=== PATIENT | male | born 1950 | race Caucasian/White ===

== ENCOUNTER → 2020-07-14 10:30 | Outpatient (CLI) | payer MEDICARE, SELFPAY ==
--- NOTE | ~2020-07-14 | CT_ITS ---
EXAMINATION:CT lung screening DATE: 07/14/2020 10:49 INDICATION: Personal history of tobacco dependence. Current smoker with 40 pack year history. TECHNIQUE: Computed tomography (CT) of the chest was performed without intravenous contrast. Automate d exposure control and iterative reconstruction technique were employed. The dose-length product (DLP ) was 53.84 mGy-cm. COMPARISON: Chest CT 06/04/2017 FINDINGS: There is mild emphysema. A calcified right lung nodule is consistent with old granulomatous disease. Again seen are a few scattered nodules measuring up to 4 mm. No pleural effusion. The heart size is normal. There are coronary artery calcifications. No pericardial effusion. There is a chroni c mildly enlarged right paratracheal lymph node, contracted. There is moderate thoracic spondylosis. IMPRESSION: 1. Lung-RADS category 2: Benign appearance or behavior. Continue annual screening with noncontrast lo w-dose chest CT in 12 months. Reviewed, dictated and finalized at location A. IMPRESSION: 1. Lung-RADS category 2: Benign appearance or behavior. Continue annual screeni ng with noncontrast low-dose chest CT in 12 months.
== END ==
PROVIDERS: PCP Internal Medicine; Visit Provider Internal Medicine
DX: Z12.2 Encounter for screening for malignant neoplasm of respiratory organs (principal); Z87.891 Personal history of nicotine dependence
CPT/HCPCS: G0297

== ENCOUNTER 2020-11-29 11:03 | Outpatient (CLI) | payer MEDICARE, SELFPAY | END 2020-11-29 11:04 | disposition home or self-care (01) | LOC: ANHCOVIDVC 11:03 | PROVIDERS: PCP Internal Medicine | DX: Z23 Encounter for immunization (principal) | CPT/HCPCS: 0001A; 91300 ==

== ENCOUNTER 2020-12-20 10:42 | Outpatient (CLI) | payer MEDICARE, SELFPAY | END 2020-12-20 10:43 | disposition home or self-care (01) | LOC: ANHCOVIDVC 10:42 | PROVIDERS: PCP Internal Medicine | DX: Z23 Encounter for immunization (principal) | CPT/HCPCS: 0002A; 91300 ==

== ENCOUNTER 2021-05-14 09:23 | Outpatient (CLI) | payer MEDICARE, SELFPAY ==
--- NOTE | ~2021-05-14 | CT_ITS ---
EXAMINATION: CT lung screening DATE: 05/14/2021 09:41 INDICATION: History of nicotine dependence TECHNIQUE: Computed tomography (CT) of the chest was performed without intravenous contrast. The dose -length product was 72.66 mGy-cm. Automated exposure control and iterative reconstruction technique w ere employed. COMPARISON: CT dated 07/14/2020 FINDINGS: Heart size normal. No significant pleural or pericardial effusion. There is atherosclerosis of the aorta and coronary arteries. No thoracic lymphadenopathy. The upper abdomen is unremarkable t here are scattered pulmonary nodules measuring 4 mm or less without significant interval change. Calc ified granuloma right upper lobe. Moderate thoracic spondylosis. No endobronchial lesions. Mild emphy sema. There are healed right rib fractures. IMPRESSION: 1. Lung-RADS category 2: Benign appearance or behavior. Continue annual screening with noncontrast lo w-dose chest CT in 12 months. Reviewed, dictated and finalized at location A. IMPRESSION: 1. Lung-RADS category 2: Benign appearance or behavior. Continue annual screeni ng with noncontrast low-dose chest CT in 12 months.
== END 2021-05-14 09:24 | disposition home or self-care (01) ==
LOC: ANHIMG 09:28
PROVIDERS: PCP Internal Medicine; Visit Provider Internal Medicine
DX: Z12.2 Encounter for screening for malignant neoplasm of respiratory organs (principal); F17.210 Nicotine dependence, cigarettes, uncomplicated
CPT/HCPCS: 71271

== ENCOUNTER 2021-06-01 13:00 | Outpatient (CLI) | payer MEDICARE, SELFPAY | END 2021-06-01 13:01 | disposition home or self-care (01) | LOC: ANHBWCAUD 13:01 | PROVIDERS: PCP Internal Medicine; Visit Provider Internal Medicine | DX: H93.13 Tinnitus, bilateral (principal) | CPT/HCPCS: 92557; 92567 ==

== ENCOUNTER 2021-07-30 00:24 | Day surgery (SDC) | payer MEDICARE, SELFPAY ==
[2021-07-12 10:52] VITALS: BMI 21.4
[2021-07-30 08:19] VITALS: BP 100/65; PULSE 66; RESP 16; TEMP 36.1; O2SAT 99; BMI 19.7
--- NOTE | 2021-07-30 08:20 | P.PNAN_ITS ---
Anes - Initial Pre Proc Eval Procedure: Operation Date: 07/30/21 09:00 Proposed Procedures p Screening Colonoscopy - Barber De La Paz MD Date/Time: 07/30/21 08:20 Surgeon: Barber De La Paz MD Pre Op Diagnosis: hx of colon polyps Patient Data Age: 70 Gender: M Height: 1.75 m Weight: 65.9 kg Allergies Allergy/AdvReac Type Severity Reaction Status Date / Time No Known Allergies Allergy Verified 07/30/21 08:17 Home Medications Medication Instructions Recorded Confirmed Type albuterol sulfate 90 mcg/actuation 2 puff INHALATION Q6H #8.5 gm 05/08/20 07/30/21 Rx aerosol inhaler Patient hx anesthesia problems: none Family hx anesthesia problems: none Results Review: All pre-operative results and documents have been reviewed as part of the pre-operative evaluation. [facility] Past Medical History Medical History Pulmonary emphysema Family History Family History Sibling Diabetes mellitus Family history of obesity Father Patient's father is in good health Mother Carcinoma of colon Social History Social History Smoking packs per day: 1 Smoking cigarettes per day: 20.0 Years smoked: 50 Smoking pack-years: 50.00 Smoking status: Current every day smoker Tobacco type: cigarettes Second hand tobacco smoke exposure: Yes Alcohol intake: current Substance use type: does not use Living arrangements: with family Anes - Eval Final PreProcedure Day of Procedure 07/30/21 08:20 Patient weight: normal Heart: regular rate and rhythm Lungs: decreased breath sounds Airway: Mallampati scale class II Neurological: alert and oriented Last oral intake: >/= 8 hours ASA classification: III Emergent: no Anesthetic plan: proceed Anesthesia type and monitoring: general GIVS and standard monitoring Results Review: All pre-operative results and documents have been reviewed as part of the pre-operative evaluation. Informed Consent: The patient's anesthetic plan and its attendant risks and benefits were discussed with the patient/family/POA. Questions were solicited and answers provided to the satisfaction of the patient/family/POA.
[2021-07-30] MEDS: LACTATED RINGERS 1,000 ML 150 ML IV CONT (08:30)
--- NOTE | 2021-07-30 08:41 | WPDGICN ---
Assessment and Plan Assessment and plan (1) History of colon polyps: Code(s): Z86.010 - Personal history of colonic polyps Status: Acute Assessment and Plan: Patient has a prior history of colon polyps for this reason he presents today for follow-up colonoscopy. (2) Family history of colonic polyps: Code(s): Z83.71 - Family history of colonic polyps Status: Acute Assessment and Plan: Patient's mother has had colon polyps suggesting this tendency runs in the family. Plan is for surveillance colonoscopy at 5 year intervals. GI Consult Note Consult date/time: 07/30/21 08:41 HPI: Pardeep Stevenson is a 70 year old male Presents for screening colonoscopy. Patient states that his current weight appetite and bowel movements are normal. He denies abdominal pain. He has had no bleeding. Family history is significant his mother had colon polyps. Patient does have a prior history of colon polyps. Most recent colonoscopy several years ago was unremarkable. Review of Systems Review of Systems: All systems reviewed & are unremarkable except as noted in HPI and below PMFSH Past Medical History Medical History Pulmonary emphysema Family History Family History Sibling Diabetes mellitus Family history of obesity Father Patient's father is in good health Mother Carcinoma of colon Social History Social History Smoking packs per day: 1 Smoking cigarettes per day: 20.0 Years smoked: 50 Smoking pack-years: 50.00 Smoking status: Current every day smoker Tobacco type: cigarettes Second hand tobacco smoke exposure: Yes Alcohol intake: current Substance use type: does not use Living arrangements: with family Meds Home Medications and Allergies Home Medications Medication Instructions Recorded Confirmed Type albuterol sulfate 90 mcg/actuation 2 puff INHALATION Q6H #8.5 gm 05/08/20 07/30/21 Rx aerosol inhaler Allergies Allergy/AdvReac Type Severity Reaction Status Date / Time No Known Allergies Allergy Verified 07/30/21 08:17 Vital Signs Vital Signs - 24 hr 07/30/21 08:19 Temperature 96.9 F L Pulse Rate 66 Respiratory Rate 16 Blood Pressure 100/65 Pulse Oximetry 99 Exam Narrative: Physical exam reveals patient be alert. Vital signs stable. HEENT exam is unremarkable. Patient is anicteric. Lungs or clear to auscultation and percussion heart is without murmur. Abdominal exam bowel sounds are present soft nontender with no organomegaly. Digital external rectal exam is normal.
[2021-07-30 09:11] VITALS: BP 86/56; PULSE 65; RESP 16; O2SAT 98
[2021-07-30 09:21] VITALS: BP 114/64; PULSE 58; RESP 16; O2SAT 100
[2021-07-30 09:31] VITALS: BP 117/67; PULSE 57; RESP 16; O2SAT 100
== END 2021-07-30 09:43 | disposition home or self-care (01) ==
PROVIDERS: PCP Internal Medicine; Visit Provider Internal Medicine Gastroenterology
PROC: 0DJD8ZZ Inspection of Lower Intestinal Tract, Via Natural or Artificial Opening Endoscopic (ICD-10-PCS; CPT 45378; principal; 2021-07-30 09:00)
DX: Z12.11 Encounter for screening for malignant neoplasm of colon (principal); Z83.71 Family history of colonic polyps; K64.8 Other hemorrhoids; K63.5 Polyp of colon; D12.2 Benign neoplasm of ascending colon; J43.9 Emphysema, unspecified; F17.210 Nicotine dependence, cigarettes, uncomplicated; Z79.51 Long term (current) use of inhaled steroids
CPT/HCPCS: 45385; 88305; J2704; J7120

== ENCOUNTER 2023-05-15 09:57 | Outpatient (CLI) | payer MEDICARE, SELFPAY ==
--- NOTE | ~2023-05-15 | CT_ITS ---
EXAMINATION: CT lung screening DATE: 05/15/2023 10:17 INDICATION: Z87.891 - Personal history of nicotine dependence TECHNIQUE: Computed tomography (CT) of the chest was performed without intravenous contrast. Addition al 3D reconstructions utilizing coronal maximum intensity projection (MIP) were performed. Automated exposure control and iterative reconstruction technique were employed. The dose-length product was 78 .75 mGy-cm. COMPARISON: 05/14/2021 FINDINGS: Mild emphysema. There are few scattered bilateral <4 mm calcified and noncalcified pulmonary nodules which are without interval change. No new or enlarging pulmonary nodules. No endobronchial lesions. N o pneumonia, pulmonary edema or pleural effusion. Heart size is normal. Atherosclerotic coronary kurt ry calcification. No pericardial effusion. Thoracic aorta is normal in caliber. No pathologically enl arged thoracic lymphadenopathy. 2 mm nonobstructing stone versus atherosclerotic calcification at the mid right kidney. Moderate thoracic spondylosis and moderate to severe spondylosis at the visualized lower cervical and upper lumbar spine. Old healed right-sided rib fractures. IMPRESSION: 1. Lung-RADS category 2: Benign appearance or behavior. Continue annual screening with noncontrast lo w-dose chest CT in 12 months. Reviewed, dictated and finalized at location A. IMPRESSION: 1. Lung-RADS category 2: Benign appearance or behavior. Continue annual screeni ng with noncontrast low-dose chest CT in 12 months.
== END 2023-05-15 09:58 | disposition home or self-care (01) ==
LOC: ANHIMG 10:00
PROVIDERS: PCP Family Medicine; Visit Provider Family Medicine
DX: Z12.2 Encounter for screening for malignant neoplasm of respiratory organs (principal); Z87.891 Personal history of nicotine dependence
CPT/HCPCS: 71271

== ENCOUNTER 2024-07-05 15:36 | Outpatient (CLI) | payer MEDICARE, SELFPAY ==
--- NOTE | ~2024-07-05 | CT_ITS ---
CT Scan of the Chest without Contrast: Clinical Indication: Lung cancer screening, nicotine dependence Technique: Contiguous sections were acquired throughout the chest without intravenous contrast. Dose reduction technique was used on this scan by utilizing automated exposure control and iterative recon struction technique. The dose-length product (DLP) was 88.96 mGy-cm. COMPARISON: 05/15/2023 Findings: There is no evidence of any significant mediastinal, hilar or axillary lymphadenopathy. The coronary artery calcifications are present. There is no evidence of pleural or pericardial effusion. There is mild emphysema. Calcified right lower lobe granuloma present. Stable 3 mm noncalcified right lower lobe pulmonary nodule. Stable 3 mm lingular nodule. Images through the upper abdomen reveal no abnormalities. Impression: Lung RADS 2: Benign appearance. 12 month follow-up screening CT advised. Reviewed, dictated and finalized at location . Impression: Lung RADS 2: Benign appearance. 12 month follow-up screening CT advised.
== END 2024-07-05 15:37 | disposition home or self-care (01) ==
LOC: ANHIMG 15:37
PROVIDERS: PCP Family Medicine; Visit Provider Family Medicine
DX: Z12.2 Encounter for screening for malignant neoplasm of respiratory organs (principal); Z87.891 Personal history of nicotine dependence
CPT/HCPCS: 71271

== ENCOUNTER 2025-01-12 15:51 | Outpatient (CLI) | payer MEDICARE, SELFPAY ==
--- OUTSIDE RECORDS SUMMARY | 2025-01-12 16:48 | XMS_ITS | Continuity of Care Document ---
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 Name Role Phone Justo Cheung MD Unavailable Unavailable Allergies, Adverse Reactions, Alerts Substance Reaction Status Criticality No Known Allergies Active No Inform ation Medications Medication Instructions Dosage Effective Dates (start - stop) Status Comments Vigamox 0.5 % eye drops instill 1 drop by ophthalmic route 4 times every day into operative eye for 2 weeks, then stop No Longer Active ok to substitute Polytrim 5ml with same directions prednisolone acetate 1 % eye drops,suspension instill 1 drop by ophthalmic route 4 times every day into operative eye for 2 weeks, then 2 times per day for 2 weeks, then stop No Longer Active ketorolac 0.5 % eye drops instill 1 drop in operative eye 4 times every day for 2 weeks, then 2 times per day for 2 weeks, then stop No Longer Active Vigamox 0.5 % eye drops instill 1 drop by ophthalmic route 4 times every day into operative eye for 2 weeks, then stop No Longer Active ok to substitute Polytrim 5ml with same directions prednisolone acetate 1 % eye drops,suspension instill 1 drop by ophthalmic route 4 times every day into operative eye for 2 weeks, then 2 times per day for 2 weeks, then stop No Longer Active ketorolac 0.5 % eye drops instill 1 drop in operative eye 4 times every day for 2 weeks, then 2 times per day for 2 weeks, then stop - No Longer Active Procedures Procedure Date Fundus Photography W/ Report Revise Eyelashes Eye Exam & Treatment No Charge Refraction Post-op Follow-up Visit Post-op Follow-up Visit Post-op Follow-up Visit Remove Cataract, Post Op Care 0 Remove Cataract, Insert Lens,Comanaged D ec IOLMaster-Professional No Charge Refraction Post-op Follow-up Visit Remove Cataract, Post Op Care 0 Remove Cataract, Insert Lens,Comanaged N IOLMaster-Professional IOLMaster-Technical Oct No Charge Refraction No Charge Optomap Fundus Photos Oct-16- 020 SCODI, Retina Oct- No Charge Orbscan Oct- No Charge AScan Oct- Office/outpatient Visit, New Advance Directives Directive Yes / No Effective Date File Name No Information Encounters Encounter Description Practice Location Reason(s) For Visit Diagnoses Date Provider Providers Copied on Encounter [facility], [id number] [address], [place], [place], [id number], [place] tel:[phone] SEC Vin BAILEY Professional 6 month Complete (chief complaint) Presence of intraocular lensDry eye syndrome of left lacrimal glandArcus senilis, right eyeDrusen (degenerative ) of macula, left eyeLattice degeneration of both retinasTrichi asis of right lower eyelid 1 Jonatan Kemp. [address] [facility], [address], [place], [place], [id number], [place]. tel:[phone] Referring Provider: Brent Turcios OD, [address] [facility], [place], [address]. tel:[phone] [facility], [address], [place], [place], [id number], [place] tel:[phone] SEC Vin [place] Professional 1 mo po PCIOL OS (09/13/20) (chief complaint) Post op visit 1 No Information Referring Provider: Brent Turcios OD, [address] [place] [address], [address]. tel:[phone] [facility], [address], [place], [place], [id number], [place] tel:[phone] SEC Vin [place] Professional 1 week s/p PCIOL (chief complaint) Post op visit 0 Jonatan Kemp. [address] [facility], [address] [place], [id number], [place]. [phone] Referring Provider: Brent Turcios OD, [address] [place] [address], [address]. tel:[phone] [facility], [address], [place], [place], [id number], [place] tel:[phone] SEC Vin [place] Professional Post-Op (chief complaint) Post op visit 0 No Information Referring Provider: Brent Turcios OD, [address] [place] [address], [address]. tel:[phone] [facility], [address], [place], [place], [id number], [place] tel:[phone] [facility] No Information 0 Jonatan Kemp. [address] [facility], [address], [place], [place], [id number], [place]. tel:[phone] Referring Provider: Brent Turcios OD, [address] [place] [address], [address]. tel:[phone] [facility], [address] [address], [place], [place], [id number], [place] tel: SEC Vin BAILEY Professional No Information 0 Jonatan Kemp. [address], [address] [place], [id number], . tel: Referring Provider: Brent Turcios OD, [address] [place] [address], [address]. tel:[phone] [facility], [address], [place], [place], [id number], tel: SEC Jing Chan No Information 0 Jonatan Kemp. [address] [facility] [place] [id number], . tel: [facility], [address], [place], [place], [id number], tel: SEC Vin BAILEY Professional 2 week s/p PCIOL (chief complaint) Post op visit 0 No Information Referring Provider: Brent Turcios OD, [address] [place] [address], [address]. tel:[phone] [facility], [address], [place], [place], [id number], tel: SEC Vin BAILEY Professional 1 day po PCIOL OD (08/16/20) (chief complaint) Post op visit 0 No Information Referring Provider: Brent Turcios OD, [address] [place] [address], [address]. tel:[phone] [facility], [address], [place], [place], [id number], tel: [facility] No Information 0 Jonatan Kemp. [address] [facility], [facility] [place], [id number], [place]. tel:[phone] Referring Provider: Brent Turcios OD, [address] [place] [address], [address]. tel:[phone] [facility], [address] [place] [address] [address], [place], [place], [id number], tel: SEC Vin BAILEY Professional No Information Nov-1 0 Jonatan Kemp. [address], [address] [place], [id number], [place]. tel:[phone] Referring Provider: Brent Turcios OD, [address] [place] [address], [address]. tel:[phone] [facility], [address] [place] [address] [address], [place], [place], [id number], tel: SEC Vin BAILEY Professional No Information Nov-0 0 Jonatan Kemp. [address], [facility] [place], [id number], [place]. tel: Office/outpa tient Visit, [facility], [address] [place] [address] [address], [place], [place], [id number], [place] tel: SEC Vin BAILEY Professional Cataract evaluation (chief complaint) Amblyopia of left eyeAge-relate d nuclear cataract, bilateralDrus en (degenerative ) of macula, left eye Oct-1 0 Jonatan Kemp. [address], [facility] [place], [id number], [place]. tel:[phone] Referring Provider: Brent Turcios OD, [address] [place] [address], [address]. tel:[phone] [facility], [address] [place] [address] [address], [place], [place], [id number], tel:[phone] SEC Vin BAILEY Professional No Information Sep-2 0 Jonatan Kemp. [address] [facility], [address], [place], [place], [id number], [place]. tel:[phone] Family History Family Member Type Diagnosis Age At Onset Problem Family history of glaucoma Payers Payer name Insurance type Covered libertarian [place] Joaquin george(s) [place] ZACK [id number] [employer] [id number] Social History Type Description Quantity Date Captured Comments Alcohol Use Details No Caffeine Use Details No Tobacco Use Status Moderate cigarette smoker (10-19 cigs/day) Smoking Status Heavy tobacco smoker Smoking Tobacco Use Details Cigarette: Age Started: 17 Cigarette: 10 Cigarettes per day Sex Male Chief Complaint And Reason For Visit From encounter dated '04/20/2021 08:30'. 6 month Complete (chief complaint). Description: The 70 year old male presents for evaluation of 6 month Complete in the right eye and left eye. Hx of PCIOL OU. Patient denies any problems or changeswith eyes. VA is stable. Reason For Referral Reason For Referral No Information Plan Of Treatment Date Type Action Status Goal Tobacco cessation counseling completed Goal Tobacco cessation counseling completed Goal Tobacco cessation counseling completed Goal Tobacco cessation counseling completed Goal Tobacco cessation counseling completed Goal Tobacco cessation counseling completed Goal Tobacco cessation counseling completed Goal Tobacco cessation counseling completed Patient Education Learning About Retinal Drusen completed Patient Education Cataract Surgery: What to Expect at H~ completed History Of Present Illness Encounter Date Complaint History Of Prese nt Illness 6 month Complete The 70 year old male presents for evaluation of 6 month Complete in the right eye and left eye. Hx of PCIOL OU. Patient denies any problems or changes with eyes. VA is stable. 1 mo po PCIOL OS (09/13/20) The 69 year old male presents for evaluation of 1 mo po PCIOL OS (09/13/20) in the left eye. Pt reports good comfort and vision OS. Pt reports taking Pred and Ketorolac BID OS. 1 week s/p PCIOL The 69 year old male presents for evaluation of 1 week s/p PCIOL in the left eye. Patient states VA is great. Patient using p/o gtts as directed. Post-Op The 69 year old male presents for a 1 day post op CE OS. Patient is using Pred, Vigamox and Ketorolac qid OS. Patient denies any pain or discomfort. 2 week s/p PCIOL The 69 year old male presents for evaluation of 2 week s/p PCIOL in the right eye (08/16/20). Patient states VA is pretty good with the right eye. Patient using p/o gtts as directed. c/o with the left eye is difficulty seeing road signs at a distance x years, trouble seeing print on the television x 6 months with the left eye, and difficulty reading any small print with the left eye x years. 1 day po PCIOL OD (08/16/20) The 69 year old male presents for evaluation of 1 day po PCIOL OD (08/16/20) in the right eye. Pt reports good comfort and vision OD. Pt was assigned Pred, Ket, and Vig QID OD. Postop instructions reviewed and understood by the pt. Cataract evaluation The 69 year old male presents for evaluation of Cataract evaluation in the right eye and left eye. Hx of CAT OU, Amblyopia OS, and Exotropia OS. Pt denies any past ocular Sx or injuries, OU. Pt reports he doesn't use any gtts, OU. Pt reports he has trouble driving due to his VA, has trouble watching TV and trouble recognizing people's faces from across the street, OU, x about 1 yr. 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
[2025-01-12 20:20] LABS: Vitamin D 25 Hydroxy 26.8 ng/mL
[2025-01-13 09:29] LABS: Alanine Aminotransferase 14 U/L (6-50); Albumin Level 3.8 g/dL (3.5-5.1); Alkaline Phosphatase 56 U/L (38-126); Anion Gap 7 mmol/L (4-12); Aspartate Amino Transferase 22 U/L (17-59); Bilirubin,Total 0.5 mg/dL (0.2-1.3); Blood Urea Nitrogen 16 mg/dL (9-20); Calcium 9.2 mg/dL (8.4-10.2); Carbon Dioxide 29 mmol/L (22-30); Chloride 101 mmol/L (98-107); Estimated Glomerular Filt Rate > 60; Glucose 96 mg/dL (65-110); Potassium 4.9 mmol/L (3.4-5.0); Sodium 137 mmol/L (137-145)
== END 2025-01-12 15:52 | disposition home or self-care (01) ==
LOC: ANHGOSHLAB 15:52
PROVIDERS: PCP Family Medicine; Visit Provider Family Medicine
DX: D64.9 Anemia, unspecified (principal); R73.9 Hyperglycemia, unspecified; E53.0 Riboflavin deficiency; E55.9 Vitamin D deficiency, unspecified; R97.20 Elevated prostate specific antigen [PSA]; E53.8 Deficiency of other specified B group vitamins; Z79.899 Other long term (current) drug therapy
CPT/HCPCS: 36415; 80053; 82306; 82607

== ENCOUNTER 2025-01-13 13:10 | Outpatient (CLI) | payer MEDICARE, SELFPAY ==
--- OUTSIDE RECORDS SUMMARY | 2025-01-13 13:31 | XMS_ITS | Continuity of Care Document ---
Author Organization [facility] [place] [address] Vel[address] [place] [phone] Phone Care Team Providers Care Master Cosmetologist Name Role Phone Justo Cheung MD Unavailable [...] Diagnoses Date Provider Providers Copied on Encounter [facility], [address] [address], [place], [place], [id number], [place] tel:[phone] SEC Vin BAILEY Professional 6 month Complete (chief complaint) Presence of intraocular lensDry eye syndrome of left lacrimal glandArcus senilis, right eyeDrusen (degenerative ) of macula, left eyeLattice degeneration of both retinasTrichi asis of right lower eyelid 1 Jonatan Kemp. [address] [facility], [address], [place], [place], [address], [place]. tel:[phone] Referring Provider: Brent Turcios OD, [address] [facility], [place], [address]. tel:[phone] [facility], [address] [address], [place], [place], [id number], [place] tel:[phone] SEC Vin [place] Professional 1 mo po PCIOL OS (09/13/20) (chief complaint) Post op visit 1 No Information Referring Provider: Brent Turcios OD, [address] [place] [address], [address]. tel:[phone] [facility], [address], [place], [place], [id number], [place] tel:[phone] SEC Vin [place] Professional 1 week s/p PCIOL (chief complaint) Post op visit 0 Jonatan Kemp. [address] [facility], [address] [place], [place], [address], [place]. [phone] Referring Provider: Brent Turcios OD, [address] [place] [address], [address]. tel:[phone] [facility], [address], [place], [place], [address], [place] tel:[phone] SEC Vin [place] Professional Post-Op (chief complaint) Post op visit 0 No Information Referring Provider: Brent Turcios OD, [address] [place] [address], [address]. tel:[phone] [facility], [address], [place], [place], [address], [place] tel:[phone] [facility] No Information 0 Jonatan Kemp. [address] [facility], [address], [place], [place], [address], [place]. tel:[phone] Referring Provider: Brent Turcios OD, [address] [place] [address], [address]. tel:[phone] [facility], [address] [address], [place], [place], [address], [place] tel: SEC Vin BAILEY Professional No Information 0 Jonatan Kemp. [address] [facility], [address] [place], [address], . tel: Referring Provider: Brent Turcios OD, [address] [place] [address], [address]. tel:[phone] [facility], [address], [place], [place], [address], tel: SEC Jing Chan No Information 0 Jonatan Kemp. [address] [facility] [place] [id number], . tel: [facility], [address], [place], [place], [address], tel: SEC Vin BAILEY Professional 2 week s/p PCIOL (chief complaint) Post op visit 0 No Information Referring Provider: Brent Turcios OD, [address] [place] [address], [address]. tel:[phone] [facility], [address], [place], [place], [address], tel: SEC Vin BAILEY Professional 1 day po PCIOL OD (08/16/20) (chief complaint) Post op visit 0 No Information Referring Provider: Brent Turcios OD, [address] [place] [address], [address]. tel:[phone] [facility], [address], [place], [place], [address], tel: [facility] No Information 0 Jonatan Kemp. [address] [facility], [facility] [place], [place], [address], [place]. tel:[phone] Referring Provider: Brent Turcios OD, [address] [place] [address], [address]. tel:[phone] [facility], [address] [place] [address] [address], [place], [place], [address], tel: SEC Vin BAILEY Professional No Information Nov-1 0 Jonatan Kemp. [address], [address] [place], [place], [id number], [place]. tel:[phone] Referring Provider: Brent Turcios OD, [address] [place] [address], [address]. tel:[phone] [facility], [address] [place] [address] [address], [place], [place], [address], tel: SEC Vin BAILEY Professional No Information Nov-0 0 Jonatan Kemp. [address], [facility] [place], [address], [place]. tel: Office/outpa tient Visit, [facility], [address] [place] [address] [address], [place], [place], [address], [place] tel: SEC Vin BAILEY Professional Cataract evaluation (chief complaint) Amblyopia of left eyeAge-relate d nuclear cataract, bilateralDrus en (degenerative ) of macula, left eye Oct-1 0 Jonatan Kemp. [address], [facility] [place], [place], [id number], [place]. tel:[phone] Referring Provider: Brent Turcios OD, [address] [place] [address], [address]. tel:[phone] [facility], [address] [place] [address] [address], [place], [place], [address], tel: SEC Vin BAILEY Professional No Information Sep-2 0 Jonatan Kemp. [address] [facility], [address], [place], [place], [address], [place]. tel:[phone] Family History Family Member Type Diagnosis Age At Onset Problem Family history of glaucoma Payers Payer name Insurance type Covered constitution party ID Joaquin george(s) [place] ZACK [id number] [employer] CI [id number] Social History Type Description Quantity Date Captured [...]
[2025-01-13 19:21] LABS: Basophils Absolute Auto 0.1 K/mm3 (0.0-0.1); Basophils Percent Auto 0.6 % (0.2-1.2); Eosinophils Percent Auto 0.4 % (0-4.4); Hemoglobin 13.5 g/dL (14.0-18.0); Immature Granulocyte Absolute 0.08 K/mm3 (0.00-0.031); Immature Granulocyte Percent A 0.8 % (0-0.5); Lymphocytes Absolute Auto 3.05 K/mm3 (0.9-3.2); Mean Corpuscular HGB Conc 32.9 g/dl (32-36); Mean Corpuscular Hemoglobin 32.1 pg (26-34); Mean Corpuscular Volume 97.4 fl (80-100); Mean Platelet Volume 9.7 fl (7.4-10.4); Monocytes Percent Auto 9.7 % (2.6-8.5); Neutrophils Absolute Auto 6.3 K/mm3 (1.3-6.7); Neutrophils Percent Auto 59.5 % (45.5-73.1); Platelet Count Result 372 k/mm3 (150-375); Red Blood Count 4.21 M/mm3 (4.6-6.20); Red Cell Distribution Width 15.1 % (11.5-14.5); White Blood Count 10.5 K/mm3 (4.5-10.0)
[2025-01-13 21:03] LABS: Hemoglobin A1C 5.4 % (<5.7)
== END 2025-01-13 13:11 | disposition home or self-care (01) ==
LOC: ANHGOSHLAB 13:11
PROVIDERS: PCP Family Medicine; Visit Provider Family Medicine
DX: Z00.00 Encounter for general adult medical examination without abnormal findings (principal); R73.9 Hyperglycemia, unspecified; D64.9 Anemia, unspecified
CPT/HCPCS: 36415; 83036; 85025

== ENCOUNTER 2025-07-06 11:16 | Outpatient (CLI) | payer MEDICARE, SELFPAY ==
--- NOTE | ~2025-07-06 | CT_ITS ---
EXAMINATION:CT lung screening DATE: 07/06/2025 11:33 INDICATION: Personal history of nicotine dependence. TECHNIQUE: Computed tomography (CT) of the chest was performed without intravenous contrast. Automated exposure control and iterative reconstruction technique were employed. The dose-length product (DLP) was 68.98 mGy-cm. COMPARISON: Chest CT 07/05/2024 FINDINGS: There is mild emphysema. Calcified bilateral lung nodules are consistent with old granulomatous disease. There are a few scattered nodules in the lungs measuring up to 4 mm without change. No pleural effusion. The heart size is normal. There are coronary artery calcifications. No pericardial effusion. There is severe thoracic spondylosis. There are old healed bilateral rib fractures. IMPRESSION: 1. Lung-RADS category 2: Benign appearance or behavior. Continue annual screening with noncontrast low-dose chest CT in 12 months. Reviewed, dictated and finalized at location E. IMPRESSION: 1. Lung-RADS category 2: Benign appearance or behavior. Continue annual screeni ng with noncontrast low-dose chest CT in 12 months.
== END 2025-07-06 11:17 | disposition home or self-care (01) ==
PROVIDERS: PCP Family Medicine; Visit Provider Family Medicine
DX: Z12.2 Encounter for screening for malignant neoplasm of respiratory organs (principal); Z87.891 Personal history of nicotine dependence
CPT/HCPCS: 71271